=== PATIENT | female | born 1945 | race Caucasian/White ===

== ENCOUNTER 2017-10-26 10:50 | Emergency (ER) | payer MEDICARE, MEDICAID, OTHER ==
[2017-10-26 12:34] LABS: ADD MAN DIFF? NO
[2017-10-26 12:35] LABS: BASOPHILS % 0.4 % (0.0-2.0); EOSINOPHILS # 0.1 10^3/ul (0.0-0.5); EOSINOPHILS % 1.1 % (0.0-7.0); HEMATOCRIT 38.7 % (37.0-47.0); HEMOGLOBIN 13.1 g/dl (12.0-16.0); LYMPHOCYTES # 1.5 10^3/ul (0.8-2.9); LYMPHOCYTES % 26.3 % (15.0-51.0); MEAN CORPUSCULAR HEMOGLOBIN 30.7 pg (29.0-33.0); MEAN CORPUSCULAR HGB CONC 33.9 g/dl (32.0-37.0); MEAN CORPUSCULAR VOLUME 90.6 fl (82.0-101.0); MEAN PLATELET VOLUME 11.2 fl (7.4-10.4); MONOCYTE # 0.3 10^3/ul (0.3-0.9); MONOCYTES % 5.5 % (0.0-11.0); NEUTROPHIL # 3.7 10^3/ul (1.6-7.5); NEUTROPHILS % 66.5 % (39.0-77.0); PLATELET COUNT 234 10^3/UL (140-415); RED BLOOD COUNT 4.27 10^6/ul (4.20-5.40); RED CELL DISTRIBUTION WIDTH 12.3 % (11.5-14.5)
[2017-10-26 12:35] LABS: WHITE BLOOD COUNT 5.6 10^3/ul (4.8-10.8)
[2017-10-26 13:06] LABS: ANION GAP 12 (8-16); BLOOD UREA NITROGEN 13 mg/dl (7-20); CALCIUM 9.3 mg/dl (8.4-10.2); CARBON DIOXIDE 28 mmol/L (21-31); CHLORIDE 106 mmol/L (97-110); CREATININE 0.71 mg/dl (0.44-1.00); GLUCOSE 100 mg/dl (70-220); SODIUM 142 mmol/L (135-144)
[2017-10-26 13:20] LABS: TROPONIN-I < 0.012 ng/ml (0.00-0.12)
== END 2017-10-26 13:36 | disposition home or self-care (01) ==
LOC: E/R 10:50
DX: R20.0 Anesthesia of skin (principal); R06.02 Shortness of breath; I10 Essential (primary) hypertension; R40.2142 Coma scale, eyes open, spontaneous, at arrival to emergency department
CPT/HCPCS: 36415; 80048; 84484; 85025; 93005; 99284-25

== ENCOUNTER → 2018-01-25 15:00 | Inpatient (IN) | payer MEDICARE, OTHER, MEDICAID ==
[2018-01-23 13:43] LABS: ADD MAN DIFF? NO
[2018-01-23 13:47] LABS: BASOPHILS % 0.3 % (0.0-2.0); EOSINOPHILS # 0.1 10^3/ul (0.0-0.5); EOSINOPHILS % 1.1 % (0.0-7.0); HEMOGLOBIN 13.1 g/dl (12.0-16.0); LYMPHOCYTES # 1.8 10^3/ul (0.8-2.9); LYMPHOCYTES % 24.7 % (15.0-51.0); MEAN CORPUSCULAR HEMOGLOBIN 30.5 pg (29.0-33.0); MEAN CORPUSCULAR HGB CONC 32.8 g/dl (32.0-37.0); MEAN PLATELET VOLUME 11.1 fl (7.4-10.4); MONOCYTE # 0.5 10^3/ul (0.3-0.9); MONOCYTES % 7.2 % (0.0-11.0); NEUTROPHIL # 4.7 10^3/ul (1.6-7.5); NEUTROPHILS % 66.4 % (39.0-77.0); PLATELET COUNT 248 10^3/UL (140-415); RED CELL DISTRIBUTION WIDTH 12.6 % (11.5-14.5)
[2018-01-23 13:47] LABS: WHITE BLOOD COUNT 7.1 10^3/ul (4.8-10.8)
[2018-01-23 13:49] LABS: ADD UMIC YES; UR ASCORBIC ACID NEGATIVE (NEGATIVE); UR BILIRUBIN (Dip) NEGATIVE (NEGATIVE); UR BLOOD (Dip) NEGATIVE (NEGATIVE); UR CLARITY CLEAR (CLEAR); UR COLOR YELLOW (YELLOW); UR GLUCOSE (Dip) NEGATIVE (NEGATIVE); UR KETONES (Dip) NEGATIVE (NEGATIVE); UR LEUKOCYTE ESTERASE (Dip) TRACE Leu/ul (NEGATIVE); UR MUCUS FEW /HPF (NONE SEEN); UR NITRITE (Dip) NEGATIVE (NEGATIVE); UR RBC 2 /HPF (0-5); UR SPECIFIC GRAVITY (Dip) 1.016 (1.003-1.030); UR TOTAL PROTEIN (Dip) NEGATIVE (NEGATIVE); UR UROBILINOGEN (Dip) NEGATIVE (NEGATIVE); UR WBC 3 /HPF (0-5)
[2018-01-23 13:58] LABS: HEMOGLOBIN A1C 5.7 % (0-5.9)
[2018-01-23 14:04] LABS: ANION GAP 12 (8-16); BLOOD UREA NITROGEN 14 mg/dl (7-20); CALCIUM 9.5 mg/dl (8.4-10.2); CARBON DIOXIDE 26 mmol/L (21-31); CHLORIDE 108 mmol/L (97-110); CHOL/HDL RATIO 3.9 RATIO; CHOLESTEROL 258 mg/dl (100-200); CREATININE 0.78 mg/dl (0.44-1.00); GLUCOSE 105 mg/dl (70-220); HDL CHOLESTEROL 66 mg/dl (33-92); LDL CHOLESTEROL,CALCULATED 169 mg/dl; POTASSIUM 4.1 mmol/L (3.5-5.1); SODIUM 142 mmol/L (135-144); TRIGLYCERIDES 114 mg/dl (0-149)
[2018-01-23 14:05] LABS: INR 0.86; PROTIME 11.8 Sec (11.9-14.9); PT RATIO 0.9
[2018-01-23 14:06] LABS: AMPHETAMINE/METHAMPHETAMINE Negative (NEGATIVE); BARBITURATES Negative (NEGATIVE); BENZODIAZEPINES Negative (NEGATIVE); CANNABINOIDS Negative (NEGATIVE); COCAINE Negative (NEGATIVE); OPIATES Negative (NEGATIVE)
[2018-01-23 14:12] LABS: PARTIAL THROMBOPLASTIN TIME 27.5 Sec (25.0-35.0)
[2018-01-23 14:15] LABS: TROPONIN-I < 0.010 ng/ml (0.000-0.120)
[2018-01-23] MEDS: ASPIRIN 81 MG TAB PO (14:48)
[2018-01-23] MEDS: SOD CHLORIDE 0.9% 1,000 ML IV (16:04)
[2018-01-23] MEDS: FAMOTIDINE 20 MG INJ IV (20:26)
[2018-01-23] MEDS: hydrALAzine 20 MG INJ IV (20:26)
[2018-01-23] MEDS: ACETAMINOPHEN 325 MG TAB PO (21:30)
[2018-01-23] MEDS: HEPARIN 5,000 UNIT/0.5 ML VIAL SC (21:34)
[2018-01-23] MEDS: TOPIRAMATE 25 MG TAB PO (22:46)
[2018-01-23] MEDS: HYDROCODONE/APAP (5/325) TAB PO (22:47)
[2018-01-23] MEDS: LORAZEPAM 0.5 MG TAB PO (22:49)
[2018-01-24] MEDS: HEPARIN 5,000 UNIT/0.5 ML VIAL SC ×3 (06:00→21:47)
[2018-01-24 06:33] LABS: ADD MAN DIFF? NO
[2018-01-24 06:56] LABS: ALANINE AMINOTRANSFERASE 17 IU/L (13-69); ALBUMIN 3.8 g/dl (3.3-4.9); ALBUMIN/GLOBULIN RATIO 1.52; ALKALINE PHOSPHATASE 83 IU/L (42-121); ANION GAP 10 (8-16); ASPARTATE AMINO TRANSFERASE 18 IU/L (15-46); BILIRUBIN,INDIRECT 0.8 mg/dl (0-1.1); BILIRUBIN,TOTAL 0.8 mg/dl (0.2-1.3); BLOOD UREA NITROGEN 13 mg/dl (7-20); CALCIUM 8.9 mg/dl (8.4-10.2); CARBON DIOXIDE 24 mmol/L (21-31); CHLORIDE 109 mmol/L (97-110); CREATININE 0.64 mg/dl (0.44-1.00); GLUCOSE 98 mg/dl (70-220); MAGNESIUM 2.2 mg/dl (1.7-2.5); POTASSIUM 3.9 mmol/L (3.5-5.1); SODIUM 139 mmol/L (135-144); TOTAL PROTEIN 6.3 g/dl (6.1-8.1)
[2018-01-24 07:14] LABS: WHITE BLOOD COUNT 6.2 10^3/ul (4.8-10.8)
[2018-01-24 07:14] LABS: BASOPHILS % 0.3 % (0.0-2.0); EOSINOPHILS % 0.5 % (0.0-7.0); HEMOGLOBIN 12.7 g/dl (12.0-16.0); LYMPHOCYTES # 1.2 10^3/ul (0.8-2.9); LYMPHOCYTES % 19.9 % (15.0-51.0); MEAN CORPUSCULAR HEMOGLOBIN 30.8 pg (29.0-33.0); MEAN CORPUSCULAR HGB CONC 33.4 g/dl (32.0-37.0); MEAN CORPUSCULAR VOLUME 92.2 fl (82.0-101.0); MEAN PLATELET VOLUME 11.6 fl (7.4-10.4); MONOCYTE # 0.3 10^3/ul (0.3-0.9); NEUTROPHIL # 4.6 10^3/ul (1.6-7.5); NEUTROPHILS % 74.1 % (39.0-77.0); PLATELET COUNT 242 10^3/UL (140-415); RED BLOOD COUNT 4.12 10^6/ul (4.20-5.40); RED CELL DISTRIBUTION WIDTH 12.6 % (11.5-14.5)
[2018-01-24 07:22] LABS: HEMOGLOBIN A1C 5.7 % (0-5.9)
[2018-01-24 07:37] LABS: THYROID STIMULATING HORMONE 0.641 MIU/L (0.465-4.680)
[2018-01-24] MEDS: TOPIRAMATE 25 MG TAB PO ×2 (09:46→20:43)
[2018-01-24] MEDS: FAMOTIDINE 20 MG INJ IV ×2 (09:46→20:43)
[2018-01-24] MEDS: ESCITALOPRAM 10 MG TAB PO (09:47)
[2018-01-24] MEDS: AMLODIPINE 10 MG TAB PO (09:48)
[2018-01-24] MEDS: BENAZEPRIL 20 MG TAB PO (09:48)
[2018-01-24] MEDS: MEMANTINE 5 MG TAB PO (09:48)
[2018-01-24] MEDS: ASPIRIN 81 MG TAB PO (09:49)
[2018-01-24] MEDS: ACETAMINOPHEN 325 MG TAB PO (09:50)
[2018-01-24] MEDS: SOD CHLORIDE 0.9% 1,000 ML IV (12:04)
[2018-01-24] MEDS: GABAPENTIN 100 MG CAP PO (20:43)
[2018-01-25] MEDS: HEPARIN 5,000 UNIT/0.5 ML VIAL SC ×2 (06:04→14:00)
[2018-01-25] MEDS: ASPIRIN 81 MG TAB PO (08:31)
[2018-01-25] MEDS: AMLODIPINE 10 MG TAB PO (08:31)
[2018-01-25] MEDS: MEMANTINE 5 MG TAB PO (08:31)
[2018-01-25] MEDS: TOPIRAMATE 25 MG TAB PO (08:31)
[2018-01-25] MEDS: ESCITALOPRAM 10 MG TAB PO (08:31)
[2018-01-25] MEDS: GABAPENTIN 100 MG CAP PO ×2 (08:31→14:33)
[2018-01-25] MEDS: FAMOTIDINE 20 MG INJ IV (08:32)
[~2018-01-25 15:00] MED LIST: ACET/BUTAL/CAFF TAB PO; ACETAMINOPHEN 325 MG TAB PO; DOCUSATE SODIUM 100 MG CAP PO; MAGNESIUM HYDROXIDE 30ML CUP PO; NACL 0.9% 3 ML SYG IV; ONDANSETRON 4 MG INJ IV; morphine 2 MG INJ IV
== END | disposition home or self-care (01) | DRG 103 ==
DX: G43.409 Hemiplegic migraine, not intractable, without status migrainosus (principal); I16.0 Hypertensive urgency; F32.9 Major depressive disorder, single episode, unspecified; F03.90 Unspecified dementia, unspecified severity, without behavioral disturbance, psychotic disturbance, mood disturbance, and anxiety
CPT/HCPCS: 36415; 70450; 70544; 70551; 71045; 80048; 80053; 80061; 80307; 81001; 82962; 83036; 83735; 84443; 84484; 85025; 85610; 85730; 92610; 93005; 93306; 93880; 97116; 97162; 97165; 97535; 99285-25

== ENCOUNTER 2018-02-14 10:47 | Emergency (ER) | payer MEDICARE, OTHER ==
[2018-02-14 13:15] LABS: ADD MAN DIFF? NO
[2018-02-14 13:19] LABS: BASOPHILS % 0.2 % (0.0-2.0); EOSINOPHILS # 0.1 10^3/ul (0.0-0.5); HEMATOCRIT 37.4 % (37.0-47.0); HEMOGLOBIN 12.5 g/dl (12.0-16.0); LYMPHOCYTES # 1.4 10^3/ul (0.8-2.9); LYMPHOCYTES % 22.1 % (15.0-51.0); MEAN CORPUSCULAR HEMOGLOBIN 30.9 pg (29.0-33.0); MEAN CORPUSCULAR HGB CONC 33.4 g/dl (32.0-37.0); MEAN CORPUSCULAR VOLUME 92.3 fl (82.0-101.0); MEAN PLATELET VOLUME 11.3 fl (7.4-10.4); MONOCYTE # 0.4 10^3/ul (0.3-0.9); MONOCYTES % 6.5 % (0.0-11.0); NEUTROPHIL # 4.3 10^3/ul (1.6-7.5); PLATELET COUNT 201 10^3/UL (140-415); RED BLOOD COUNT 4.05 10^6/ul (4.20-5.40); RED CELL DISTRIBUTION WIDTH 12.7 % (11.5-14.5)
[2018-02-14 13:19] LABS: WHITE BLOOD COUNT 6.1 10^3/ul (4.8-10.8)
[2018-02-14 13:27] LABS: ANION GAP 10 (8-16); BLOOD UREA NITROGEN 10 mg/dl (7-20); CALCIUM 9.4 mg/dl (8.4-10.2); CARBON DIOXIDE 27 mmol/L (21-31); CHLORIDE 110 mmol/L (97-110); CREATININE 0.73 mg/dl (0.44-1.00); GLUCOSE 100 mg/dl (70-220); POTASSIUM 4.4 mmol/L (3.5-5.1); SODIUM 143 mmol/L (135-144)
[2018-02-14 13:39] LABS: INR 0.93; PROTIME 12.5 Sec (11.9-14.9)
[2018-02-14 13:40] LABS: PARTIAL THROMBOPLASTIN TIME 27.9 Sec (25.0-35.0)
[2018-02-14 14:35] LABS: TROPONIN-I < 0.010 ng/ml (0.000-0.120)
== END 2018-02-14 15:12 | disposition home or self-care (01) ==
LOC: E/R 10:47
DX: R20.2 Paresthesia of skin (principal); I10 Essential (primary) hypertension; R40.2142 Coma scale, eyes open, spontaneous, at arrival to emergency department; R40.2362 Coma scale, best motor response, obeys commands, at arrival to emergency department; R40.2252 Coma scale, best verbal response, oriented, at arrival to emergency department; Z79.82 Long term (current) use of aspirin
CPT/HCPCS: 36415; 70450; 80048; 84484; 85025; 85610; 85730; 93005; 99285-25

== ENCOUNTER 2018-11-26 08:56 | Emergency (ER) | payer MEDICARE, OTHER ==
[2018-11-26] MEDS: MECLIZINE 12.5 MG TAB PO (09:23)
== END 2018-11-26 10:00 | disposition home or self-care (01) ==
LOC: E/R 08:56
DX: R42 Dizziness and giddiness (principal); I10 Essential (primary) hypertension; Z79.82 Long term (current) use of aspirin
CPT/HCPCS: 82962; 93005; 99283-25